=== PATIENT | female | born 1995 | race Caucasian/White ===

== ENCOUNTER 2020-06-06 19:02 | Observation (INO) | payer MEDICAID, SELFPAY ==
[2020-06-06 19:03] VITALS: BP 127/74; PULSE 115; RESP 16; TEMP 37.6; O2SAT 98; BMI 20.2
--- NOTE | 2020-06-06 19:25 | ED.RN ---
NO OLD EKGS IN MUSE
--- NOTE | 2020-06-06 19:37 | EKG12_ITS ---
Test Reason : WOUND Blood Pressure : / mmHG Vent. Rate : 114 BPM Atrial Rate : 114 BPM P-R Int : 158 ms QRS Dur : 094 ms QT Int : 314 ms P-R-T Axes : 063 097 -43 degrees QTc Int : 432 ms Sinus tachycardia Rightward axis Incomplete right bundle branch block Non-specific ST & T wave changes Abnormal ECG Confirmed by ALISTAIR READ, KAI ([id number]), editorial specialist MARIE GALEANA ([id number]) on 06/09/2020 10:53:14 A M Referred By: ANTHONY Confirmed By:JAY SAINZ MD
--- NOTE | 2020-06-06 19:40 | ED.VIS.GEN ---
History of Present Illness Chief Complaint: Wound Onset: Yesterday Narrative: Presenting noted increasing redness up the arm noted yesterday on the left side. Pain in the axillary region today. States has a wound on the left fifth knuckle noted around a week ago. Denies any injuries. Has been having chills today. No cough or urinary symptoms. No nausea or vomiting. No past medical history. No drainage from site. Increasing tenderness at the hand. No history of similar. Prior similar symptoms: No Past Medical History - Allergies and Home Meds Allergies/Adverse Reactions: Allergies No Known Allergies Allergy (Verified 06/06/20 19:05) Primary Care Physician: Yordan Marcum DO [Primary Care Provider] - Past Medical History: None Review of Systems General: Denies: Chills, Fever, Sweats Eyes: Denies: Visual changes - bilaterally, Diplopia ENT: Denies: Rhinorrhea, Sore throat Cardiovascular: Denies: Chest pain, Palpitations Respiratory: Denies: Dyspnea, Cough, Dyspnea on exertion Gastrointestinal: Denies: Abdominal pain, Nausea, Vomiting, Diarrhea, Melena, Hematochezia Genitourinary: Denies: Dysuria, Hematuria, Frequency Musculoskeletal: Denies: Back pain, Extremity Pain Skin: Reports: Wounds. Denies: Rash Neurological: Denies: Headache, Weakness, Numbness Physical Exam Vital Signs/Narrative: Vital Signs Temp Pulse Resp BP Pulse Ox 06/06/20 19:03 99.7 F H 115 H 16 127/74 H 98 Inital Vital Signs reviewed: Yes General: Well nourished, Well developed, No Acute Distress Head: Normocephalic, Atraumatic Eyes: Perrl, EOMI ENT: Moist mucous membranes, No rhinorrhea Neck: Supple, Nontender Cardiovascular: Regular rhythm, No murmurs, Tachycardia Respiratory: No distress, CTA bilaterally, Chest nontender Abdomen: Soft, Nontender, Nondistended, Normal bowel sounds Back: Nontender, Normal Inspection Extremities: No edema, - - Left upper extremity: There is a 2 cm closed comedone left dorsal proximal phalanx of the fifth digit. There is surrounding erythema distal aspect of dorsal hand, there is streaking up the arm to the axillary region, there is no palpable lymphadenopathy at the axillary region however there is tende Skin: Normal color, No rash Neurological: Alert, Oriented x3, Cranial nerves II-XII grossly intact, Normal Strength, Normal Sensation Psychological: Normal affect, Normal Mood Diagnostic/Tx/Re-eval Abnormal Lab Results 06/06/20 06/06/20 06/06/20 19:45 19:45 19:45 WBC 12.0 H RBC 4.31 Hgb 13.0 Hct 38.6 MCV 89.6 MCH 30.2 MCHC 33.7 RDW Std Deviation 38.3 RDW Coeff of Layla 11.7 Plt Count 236 MPV 10.8 Immature Gran % (Auto) 0.400 Neut % (Auto) 81.2 H Lymph % (Auto) 11.1 L Brule % (Auto) 6.9 Eos % (Auto) 0.2 Baso % (Auto) 0.2 Absolute Neuts (auto) 9.8 H Absolute Lymphs (auto) 1.33 Nucleated RBC % 0 PT 14.2 INR 1.2 APTT 31.7 Sodium 137 Potassium 3.2 L Chloride 104 Carbon Dioxide 28.0 Anion Gap 5 BUN 6 L Creatinine 0.65 Estim Creat Clear Calc 104.64 Est GFR (MDRD) Af Amer 143 Est GFR (MDRD) Non-Af 118 BUN/Creatinine Ratio 9.3 L Glucose 97 Lactic Acid Calcium 9.3 Total Bilirubin 0.70 AST 8 L ALT 20 Alkaline Phosphatase 59 Total Protein 8.0 Albumin 4.1 Globulin 3.9 Albumin/Globulin Ratio 1.1 06/06/20 19:45 WBC RBC Hgb Hct MCV MCH MCHC RDW Std Deviation RDW Coeff of Layla Plt Count MPV Immature Gran % (Auto) Neut % (Auto) Lymph % (Auto) Brule % (Auto) Eos % (Auto) Baso % (Auto) Absolute Neuts (auto) Absolute Lymphs (auto) Nucleated RBC % PT INR APTT Sodium Potassium Chloride Carbon Dioxide Anion Gap BUN Creatinine Estim Creat Clear Calc Est GFR (MDRD) Af Amer Est GFR (MDRD) Non-Af BUN/Creatinine Ratio Glucose Lactic Acid 1.0 Calcium Total Bilirubin AST ALT Alkaline Phosphatase Total Protein Albumin Globulin Albumin/Globulin Ratio - EKG Initial EKG Interpretation: Sinus Tachycardia - Sinus tachycardia rate of 114, no ST changes, T wave inversions inferior leads and V3. - Medical Decision Making Patient low-grade temp on arrival tachycardic, infection site concerning for the left hand wound region with streaking. Sepsis work-up initiated. There is no crepitus around the wound site, however x-rays were ordered. 3 view left hand x-ray reviewed by myself shows no bony process, no soft tissue gas. Patient's white count returned at 12, meeting sepsis criteria. Her lactic acid was normal. I performed I&D bedside with scant exudates with culture sent prior to starting antibiotics. She was covered with Zosyn and vancomycin. With streaking up to her axillary region, I do feel she will benefit from hospitalization to monitor. I spoke with hospitalist. Dr. Santacruz will admit for further management. Procedure note: Verbal consent incision and drainage. Normal sterile fashion. Shur-Clens for wound preparation, 1 cc 1% lidocaine used for local analgesia. Betadine prep was performed, a cruciate incision was made over the wound, scant exudates were noted, cultures collected. Hemostats used to help open loculations. Patient tolerated procedure well. - Critical Care Time Critical care time (excluding procedures): 30-74 minutes, Discussing w/Consultants, Arranging Admission or Transfer ED Disposition - Plan for ED Patient: Disposition: Acute Care Hospital [facility] Diagnosis: Sepsis, Cellulitis of left hand Referrals: Yordan Marcum DO [Primary Care Provider] -
--- NOTE | 2020-06-06 19:50 | RAD_ITS ---
STUDY: X-RAY - LEFT HAND REASON FOR EXAM: Female, 24 years old. infection 5th knuckle TECHNIQUE: 3 view(s) of the hand. COMPARISON: None. FINDINGS: Normal radiocarpal articulation. Normal distal radioulnar joint. Normal visualized carpal bones. Normal carpal articulations Normal carpometacarpal articulation of the thumb. Normal second through fifth carpometacarpal joints. Normal metacarpi. Normal metacarpophalangeal joint of the thumb. Normal interphalangeal joint of the thumb. Normal proximal and distal phalanges of the thumb. Normal metacarpophalangeal joints of the second through fifth fingers. Normal proximal and distal interphalangeal joints of the second through fifth fingers. Normal phalanges of the second through fifth fingers. Soft tissue swelling with no foreign body RAD/Hand Min 3 Views IMPRESSION: Soft tissue swelling with no fracture, osteolytic lesion, dislocation or foreign body. Electronically Signed: Lisa Cates MD at 20:53 EDT , Service support ,
[2020-06-06 19:55] LABS: Absolute Lymphocyte Count 1.33 X10^3/uL (0.83-4.51); Absolute Neutrophil Count 9.8 X10^3/uL (2.0-7.7); Basophil# 0.03 X10^3/uL; Basophil% 0.2 % (0-1); Eosinophil# 0.03 X10^3/uL; Eosinophils% 0.2 % (0-5); Hematocrit 38.6 % (37-47); Lymphocyte # 1.33 X10^3/ul (4.0); Lymphocyte % 11.1 % (19-41); Mean Corp Hgb Conc 33.7 g/dL (32-36); Mean Corpuscular Hgb 30.2 pg (27.0-32.0); Mean Corpuscular Volume 89.6 fL (81-99); Mean Platelet Vol. 10.8 fl (6.2-12.0); Monocyte# 0.83 X10^3/uL; Monocyte% 6.9 % (0-10); NRBC Flagged by Analyzer 0 % (0-5); Neutrophil # 9.75 X10^3/uL (2.7-7.7); Neutrophil % 81.2 % (47-70); Platelet Count 236 K/mm3 (150-450); RBC Distribution Width CV 11.7 % (11.6-14.6); RBC Distribution Width SD 38.3 fl (35.1-43.9); Red Blood Count 4.31 M/mm3 (4.2-5.4)
[2020-06-06] MEDS: Lidocaine 1% (20 ml mdv) 20 ML Vial INFILT (19:58)
[2020-06-06 20:00] VITALS: BP 119/85; PULSE 106; RESP 17; TEMP 36.4; O2SAT 100
[2020-06-06 20:04] LABS: International Normalized Ratio 1.2; Prothrombin Time (Protime)PT. 14.2 SECONDS (11.7-14.9)
[2020-06-06 20:05] LABS: Partial Thromboplast Time 31.7 Seconds (24.1-36.2)
[2020-06-06 20:11] VITALS: TEMP 36.4; O2SAT 99
[2020-06-06 20:15] LABS: ALB/GLOB Ratio 1.1 RATIO (0.9-2.4); AST(SGOT) 8 U/L (15-37); Alanine Aminotransfer ALT/SGPT 20 U/L (13-56); Albumin, Serum 4.1 g/dL (3.2-5.0); Alkaline Phosphatase 59 U/L (45-117); Anion Gap 5 (5-15); BUN 6 mg/dL (7-18); BUN/Creat Ratio 9.3 RATIO (10-20); Calcium,Total 9.3 mg/dL (8.5-10.1); Chloride 104 mmol/L (98-107); Creatinine, Serum 0.65 mg/dL (0.55-1.02); EST Glomerular Filtration Rate 118 mL/min (>60); Est Glom Filt Rate - Afr Amer 143 mL/min (>60); Estimated Creatinine Clearance 104.64 ml/min; Globulin 3.9 g/dL (2.2-4.2); Glucose 97 mg/dL (74-106); Potassium 3.2 mmol/L (3.5-5.1); Sodium Level 137 mmol/L (136-145)
[2020-06-06 20:39] VITALS: BP 119/85; PULSE 106; RESP 19; TEMP 36.4; O2SAT 96
--- NOTE | 2020-06-06 20:59 | PCM.HP.STD ---
Problem List (1) Abscess of finger of left hand Status: Acute (2) Cellulitis of left hand Status: Acute (3) Sepsis Status: Inactive (4) Denies previous medical history Status: Chronic History of Present Illness Date of Admission: 06/06/20 Chief Complaint: Pain and swelling of fifth digit of left hand. The patient is a 24 year old F previously healthy who presented with 5-day history of Pain and swelling of fifth digit of left hand after developing a wound on the proximal phalanx of the fifth digit of the left hand. She noticed increased warmth in the same extremity. She denies any trauma or insect bite. Her symptoms has been progressively worsening. She has noticed progressively worsening redness from the same digit into the armpits of same extremity. She placed her left hand in Epson salt and had some relief. Past Medical History Past Medical History (Chronic Problems): Chronic Problems (Last Reviewed 06/06/20 @ 22:[address] Josiah Santacruz MD) Denies previous medical history (Chronic) Medical History: Medical History (Last Updated 06/06/20 @ 21:[address] Josiah Santacruz MD) Denies previous medical history (Acute) Allergies No Known Allergies Allergy (Verified 06/06/20 19:05) Home Medications: Ambulatory Orders Medication Instructions Recorded NK 06/06/20 Surgical History: no surgical history Smoking Status: Never smoker Tobacco Use: Non-smoker - *Family History Maternal History Items: - - Denies knowledge of maternal medical history Paternal History Items: Heart Disease Review of Systems Constitutional: Reports: Chills. Denies: Fever, Weight Change HEENT: Denies: Head Aches, Sinus Congestion, Sinus Drainage Cardiovascular: Denies: Chest Pain, Palpitations Respiratory: Denies: Cough, Shortness of breath at rest, Sputum production Gastrointestinal: Denies: Abdominal Pain, Nausea, Vomiting Genitourinary: Denies: Dysuria Musculoskeletal: Reports: Hand Pain, Joint Tenderness. Denies: Joint Pain Skin: Denies: Rash, Wounds Neurological: Denies: Numbness, Tingling, Focal weakness Psychiatric: Denies: Anxiety, Depression, Homicidal Ideations, Suicidal Ideations Hematologic/ Lymphatic: Denies: Easy Bruising, Easy Bleeding VTE Information - Inpt Only VTE Present on Admission: No VTE Mechan Device Prophylaxis: None VTE Pharm Prophylaxis ordered?: No Reason prophylaxis not ordered:: Treatment Not Indicated - Low risk; encourage to ambulate Patient Problems: Active and Suspected Problems (Last Reviewed 06/06/20 @ 22:[address] Josiah Santacruz MD) Cellulitis of left hand (Acute) Abscess of finger of left hand (Acute) - Physical Exam Vitals/I&O's: Vital Signs Temp Pulse Resp BP Pulse Ox 97.6 F L 106 H 17 119/85 H 99 06/06/20 20:11 06/06/20 20:00 06/06/20 20:00 06/06/20 20:00 06/06/20 20:11 Oxygen Delivery Method Room Air Weight: 50.3 kg Body Mass Index (BMI) 20.2 Intake and Output for Last 24 Hours 06/04/20 06/05/20 06/06/20 23:59 23:59 23:59 Intake Total 50 / 50 Balance 50 / 50 General: Alert, Oriented x3, Cooperative HEENT: Atraumatic, PERRLA, EOMI, Normocephalic Neck: Supple, No JVD, Negative Carotid Bruits Lungs: Clear to auscultation, Normal air movement Cardiovascular: Regular rate, No murmurs Abdomen: Bowel Sounds Present, Soft, Non Tender Extremities: No edema, Capillary Refill Less than 3 Seconds Skin: - - Lymphangitic streaking from left hand extending to left armpit. Musculoskeletal: Tenderness - Fifth digit of left hand extending to left forearm and left arm, - - Swelling of fifth digit of left hand. Neurological: Cranial nerves II-XII grossly intact Psych/Mental Status: Normal Affect, Appropriate Laboratory Results 06/06/20 19:45: WBC 12.0 H, RBC 4.31, Hgb 13.0, Hct 38.6, MCV 89.6, MCH 30.2, MCHC 33.7, RDW Std Deviation 38.3, RDW Coeff of Layla 11.7, Plt Count 236, MPV 10.8, Immature Gran % (Auto) 0.400, Neut % (Auto) 81.2 H, Lymph % (Auto) 11.1 L, [place] % (Auto) 6.9, Eos % (Auto) 0.2, Baso % (Auto) 0.2, Absolute Neuts (auto) 9.8 H, Absolute Lymphs (auto) 1.33, Nucleated RBC % 0 06/06/20 19:45: PT 14.2, INR 1.2, APTT 31.7 06/06/20 19:45: Sodium 137, Potassium 3.2 L, Chloride 104, Carbon Dioxide 28.0, Anion Gap 5, BUN 6 L, Creatinine 0.65, Estim Creat Clear Calc 104.64, Est GFR (MDRD) Af Amer 143, Est GFR (MDRD) Non-Af 118, BUN/Creatinine Ratio 9.3 L, Glucose 97, Calcium 9.3, Total Bilirubin 0.70, AST 8 L, ALT 20, Alkaline Phosphatase 59, Total Protein 8.0, Albumin 4.1, Globulin 3.9, Albumin/Globulin Ratio 1.1 06/06/20 19:45: Lactic Acid 1.0 Current Medications Vancomycin HCl 750 mg/ Sodium (Chloride) 265 mls @ 250 mls/hr IV X1 ONE Stop: 06/06/20 21:33 Last Admin: 06/06/20 20:37 Dose: 250 mls/hr Documented by: Sodium Chloride () 250 mls @ 15 mls/hr IV .[id number] PRN PRN Reason: Saline Flush Assessment/Plan All Active Problems (Last Reviewed 06/06/20 @ 22:[address] Josiah Santacruz MD) Cellulitis of left hand (Acute) Abscess of finger of left hand (Acute) The patient is a 24 year old F previously healthy who presented with 5-day history of Pain and swelling of fifth digit of left hand after developing a wound on the proximal phalanx of the fifth digit of the left hand and with lymphangitic streaking was found to have leukocytosis and tachycardia. Abscess of fifth digit of left hand with cellulitis. Patient with tachycardia and low-grade fever of 99.7. Abscess was incised and drained at the emergency department and cultures obtained; follow. Blood cultures obtained in the emergency department; follow. Started on vancomycin and Zosyn at emergency department. Vancomycin and Zosyn continued. Review of medical department labs showed a leukocytosis with white count of 12,000. On the borderline of sepsis as white count is 12. Does not meet sepsis criteria Toradol IV as needed for pain; acetaminophen p.o. as needed for pain. Trend CBC and BMP. Hypokalemia Potassium 3.2 Replacement ordered Trend BMP DVT prophylaxis Low risk. Encourage to ambulate. Inpatient E&M: 02740 Init Hosp L3
[2020-06-06 21:47] VITALS: BMI 20.5
[2020-06-06 22:03] VITALS: BP 106/64; PULSE 106; RESP 16; TEMP 37.2; O2SAT 98
[2020-06-06] MEDS: Potassium Chloride Oral Tablet 20 MEQ 40 MEQ PO (22:15)
--- NOTE | 2020-06-06 22:36 | PCM.RX.CS ---
Consult Pharmacy has been consulted to manage selected antiobiotic: Vancomycin Type of Consult: New start Suspected Infection: Skin/Soft tissue Prior Doses of Antibiotics Received/Current Regimen: Medications Vancomycin HCl 750 mg/ Sodium (Chloride) 265 mls @ 250 mls/hr IV Q12H ORLY Discontinued Medications Vancomycin HCl 750 mg/ Sodium (Chloride) 265 mls @ 250 mls/hr IV X1 ONE Stop: 06/06/20 21:33 Last Admin: 06/06/20 21:41 Dose: Infused Labs: Sodium 137 mmol/L (136-145) 06/06/20 19:45 Potassium 3.2 mmol/L (3.5-5.1) L 06/06/20 19:45 Chloride 104 mmol/L (98-107) 06/06/20 19:45 Carbon Dioxide 28.0 mmol/L (21.0-32.0) 06/06/20 19:45 Anion Gap 5 (5-15) 06/06/20 19:45 BUN 6 mg/dL (7-18) L 06/06/20 19:45 Creatinine 0.65 mg/dL (0.55-1.02) 06/06/20 19:45 Est GFR (MDRD) Af Amer 143 mL/min (>60) 06/06/20 19:45 Est GFR (MDRD) Non-Af 118 mL/min (>60) 06/06/20 19:45 BUN/Creatinine Ratio 9.3 RATIO (10-20) L 06/06/20 19:45 Glucose 97 mg/dL (74-106) 06/06/20 19:45 Weight used for dosin.9 kg Estimated Creatinine Clearance: 105 Goal Trough: 10-15 mcg/mL Pharmacy Plan for Drug Dosing: Pharmacy Service will continue to monitor and adjust dosing as required. Follow-Up Labs: Trough Vancomycin Labs to be done on [date and time ordered]: 06/08/20 @0800
--- NOTE | 2020-06-06 22:42 | NURSING ---
Pt notified that visitors aren't allowed past 1800. Pt stated her is working on getting a ride at this time.
[2020-06-07 03:32] VITALS: BP 110/71; PULSE 93; RESP 16; TEMP 36.8; O2SAT 100
[2020-06-07] MEDS: 0.9% Saline Lock 10 ML Syringe IV ×2 (05:00→21:08)
[2020-06-07 05:57] LABS: Absolute Lymphocyte Count 1.19 X10^3/uL (0.83-4.51); Absolute Neutrophil Count 5.7 X10^3/uL (2.0-7.7); Basophil# 0.03 X10^3/uL; Basophil% 0.4 % (0-1); Eosinophil# 0.08 X10^3/uL; Hematocrit 34.7 % (37-47); Hemoglobin 11.5 g/dL (12.0-15.0); Lymphocyte # 1.19 X10^3/ul (4.0); Lymphocyte % 15.3 % (19-41); Mean Corp Hgb Conc 33.1 g/dL (32-36); Mean Corpuscular Volume 90.6 fL (81-99); Mean Platelet Vol. 11.1 fl (6.2-12.0); Monocyte# 0.72 X10^3/uL; Monocyte% 9.3 % (0-10); NRBC Flagged by Analyzer 0 % (0-5); Neutrophil # 5.73 X10^3/uL (2.7-7.7); Neutrophil % 73.7 % (47-70); Platelet Count 209 K/mm3 (150-450); RBC Distribution Width CV 11.9 % (11.6-14.6); RBC Distribution Width SD 39.4 fl (35.1-43.9); Red Blood Count 3.83 M/mm3 (4.2-5.4); White Blood Count 7.8 K/mm3 (4.4-11.0)
[2020-06-07 06:26] LABS: Anion Gap 6 (5-15); BUN 6 mg/dL (7-18); BUN/Creat Ratio 11.3 RATIO (10-20); Calcium,Total 8.7 mg/dL (8.5-10.1); Chloride 108 mmol/L (98-107); Creatinine, Serum 0.53 mg/dL (0.55-1.02); EST Glomerular Filtration Rate 148 mL/min (>60); Est Glom Filt Rate - Afr Amer 180 mL/min (>60); Estimated Creatinine Clearance 128.34 ml/min; Glucose 90 mg/dL (74-106); Potassium 3.7 mmol/L (3.5-5.1); Sodium Level 137 mmol/L (136-145)
[2020-06-07 07:35] VITALS: O2SAT 99
[2020-06-07 08:02] VITALS: BP 103/62; PULSE 85; RESP 16; TEMP 36.7; O2SAT 97
--- NOTE | 2020-06-07 08:36 | PN_ITS ---
Patient Problems: Active and Suspected Problems (Last Reviewed 06/06/20 @ 22:[address] Josiah Santacruz MD) Cellulitis of left hand (Acute) Abscess of finger of left hand (Acute) Subjective: Chief complaint: Follow-up after admission for acute left hand cellulitis/base of the left fifth digit abscess with cellulitis, with sepsis. Patient seen and examined. No acute events overnight. Erythema and swelling of the dorsum of left hand is getting better, more localized. Streaking up into the left arm is getting better as well. She has been afebrile. She complained of neck soreness. Her vital signs are stable, afebrile. - Physical Exam Vitals/I&O's: Vital Signs Temp Pulse Resp BP Pulse Ox 98.1 F 85 16 103/62 97 06/07/20 08:02 06/07/20 08:02 06/07/20 08:02 06/07/20 08:02 06/07/20 08:02 Oxygen Delivery Method Room Air Weight: 112 lb 3.445 oz Body Mass Index (BMI) 20.5 Intake and Output for Last 24 Hours 06/05/20 06/06/20 06/07/20 23:59 23:59 23:59 Intake Total 315 / 515 1400 / 1400 Balance 315 / 515 1400 / 1400 General: Alert, Oriented x3, Cooperative, No apparent distress HEENT: Atraumatic, PERRLA, EOMI, Normocephalic Oral: Moist Mucosa, No Gingival or Mucosal Lesions/ Ulcerations Neck: Supple, No JVD, Negative Carotid Bruits, Trachea Midline, Thyroid Normal Size and Texture Lungs: Clear to auscultation, Normal air movement, No rhonchi, No wheeze, No rales Cardiovascular: Regular rate, Regular Rhythm, Normal S1, Normal S2, PMI Normal Abdomen: Bowel Sounds Present, Soft, Non Tender, Non-Distended, No Hepato- splenomegaly Extremities: No clubbing, No cyanosis, No edema, - - Left hand: Swelling and erythema around the left fifth digit knuckle, dry wound, mild diffuse erythema of the dorsum of left hand, minimal streaking up to the left forearm. Skin: No rashes, No breakdown Lymphatic: No Cervical, Supraclavicular, or Inguinal Adenopathy Neurological: Cranial nerves II-XII grossly intact, Neuro grossly intact Psych/Mental Status: Normal Affect, Appropriate, Alert and oriented to time, place, person, mood and affect Laboratory Results 06/06/20 19:45: WBC 12.0 H, RBC 4.31, Hgb 13.0, Hct 38.6, MCV 89.6, MCH 30.2, M CHC 33.7, RDW Std Deviation 38.3, RDW Coeff of Layla 11.7, Plt Count 236, MPV 10.8, Immature Gran % (Auto) 0.400, Neut % (Auto) 81.2 H, Lymph % (Auto) 11.1 L, King % (Auto) 6.9, Eos % (Auto) 0.2, Baso % (Auto) 0.2, Absolute Neuts (auto) 9.8 H, Absolute Lymphs (auto) 1.33, Nucleated RBC % 0 06/06/20 19:45: PT 14.2, INR 1.2, APTT 31.7 06/06/20 19:45: Sodium 137, Potassium 3.2 L, Chloride 104, Carbon Dioxide 28.0, Anion Gap 5, BUN 6 L, Creatinine 0.65, Estim Creat Clear Calc 104.64, Est GFR (MDRD) Af Amer 143, Est GFR (MDRD) Non-Af 118, BUN/Creatinine Ratio 9.3 L, Glucose 97, Calcium 9.3, Total Bilirubin 0.70, AST 8 L, ALT 20, Alkaline Phosphatase 59, Total Protein 8.0, Albumin 4.1, Globulin 3.9, Albumin/Globulin Ratio 1.1 06/06/20 19:45: Lactic Acid 1.0 06/07/20 05:30: WBC 7.8, RBC 3.83 L, Hgb 11.5 L, Hct 34.7 L, MCV 90.6, MCH 30.0, MCHC 33.1, RDW Std Deviation 39.4, RDW Coeff of Layla 11.9, Plt Count 209, MPV 11.1, Immature Gran % (Auto) 0.300, Neut % (Auto) 73.7 H, Lymph % (Auto) 15.3 L, King % (Auto) 9.3, Eos % (Auto) 1.0, Baso % (Auto) 0.4, Absolute Neuts (auto) 5.7, Absolute Lymphs (auto) 1.19, Nucleated RBC % 0 06/07/20 05:30: Sodium 137, Potassium 3.7, Chloride 108 H, Carbon Dioxide 23.0, Anion Gap 6, BUN 6 L, Creatinine 0.53 L, Estim Creat Clear Calc 128.34, Est GFR (MDRD) Af Amer 180, Est GFR (MDRD) Non-Af 148, BUN/Creatinine Ratio 11.3, Glucose 90, Calcium 8.7 Current Medications Acetaminophen (Acetaminophen 325 Mg Tablet) 650 mg PO Q6H PRN PRN PRN Reason: Pain Score 1-10/Temp > 100.7 F Bacitracin (Bacitracin 15 Gm Tube) 1 applic TOPICAL TID ORLY; Protocol Sodium Chloride () 250 mls @ 15 mls/hr IV .[id number] PRN PRN Reason: Saline Flush Sodium Chloride () 250 mls @ 15 mls/hr IV .[id number] PRN PRN Reason: Additional IVPB Infusion Ampicillin Sodium/Sulbactam (Sodium 3 gm/ Sodium Chloride) 112 mls @ 150 mls/hr IV Q8 ORLY Ketorolac Tromethamine (Ketorolac 15 Mg/Ml Vial) 15 mg IV Q8H PRN PRN PRN Reason: pain 4-10 Stop: 06/11/20 21:48 Ondansetron HCl (Ondansetron 4 Mg/2 Ml Vial) 4 mg IV Q8H PRN PRN PRN Reason: NAUSEA/VOMITING Senna/Docusate Sodium (Senna/Docusate Sodium 1 Tablet) 2 tablet PO BID PRN PRN PRN Reason: Constipation Sodium Chloride (0.9% Saline Lock 10 Ml Syringe) 10 - 40 ml IV UD PRN PRN Reason: SALINE FLUSH Last Admin: 06/07/20 05:00 Dose: 10 ml Documented by: Medical Necessity - Tobacco Use Smoking Status: Never smoker Tobacco Use: Non-smoker Assessment/Plan All Active Problems (Last Reviewed 06/06/20 @ 22:[address] Josiah Santacruz MD) Cellulitis of left hand (Acute) Abscess of finger of left hand (Acute) This is a 24 years old female patient presented to the emergency room because of increasing redness and swelling as well as mild pain on the dorsal aspect of the left hand mainly at the base of the left fifth digit, found to have left fifth digit abscess with surrounding cellulitis/left hand cellulitis, status post incision and drainage at the bedside and also found to have sepsis. #1 acute left dorsal hand cellulitis/left fifth digit knuckle cellulitis with abscess/sepsis: Status post incision and drainage at the bedside. She is on IV vancomycin and Zosyn. She has been afebrile, WBC is back to normal. Erythema and streaking of the left upper extremity is getting better. Vital signs are stable, no more tachycardia. Blood and wound cultures are pending. Plan: Discontinue IV vancomycin and Zosyn, start IV Unasyn, start topical bacitracin, anticipate discharge home tomorrow if improving. #2 hypokalemia: Replaced and corrected. #3 DVT prophylaxis: Low risk patient, no prophylaxis indicated. Ambulate. This note was generated with [employer] dictation software. It may contain incorrect words, spelling, and punctuation that were not noted in checking the note before signing. Inpatient E&M: 50523 Subs Hosp L2
[2020-06-07 13:47] VITALS: BP 101/64; PULSE 85; RESP 16; TEMP 36.6; O2SAT 97
[2020-06-07] MEDS: BACITRACIN 15 GM Tube 1 APPLIC TOPICAL ×2 (13:49→21:08)
--- NOTE | 2020-06-07 16:16 | CM.UR ---
RN CM Assessment Introduced role of RN CM to patient.? Patient is alert, oriented and able?to participate in RN CM Assessment. ?Care providers, pharmacy, and demographics verified. 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 PCP: Dr. Marcum Specialists: None Preferred Pharmacy: [facility] Insurance: [employer] Rx Benefit:? yes through [employer] ?LNOK: sonja LW/HPOA: none, declines additional information at this time. Living Arrangements:? [place] home with and 3 children. ADL?s: independent Transportation: [employer] DME: None HHC: None SNF: None Goal: home, denies any needs. DC PLAN: Home, no needs anticipated. Alerted patient that case management will remain available should any needs arise. Verb understanding. Stephani Lou RN, CCM.
[2020-06-07 19:19] VITALS: BP 105/63; PULSE 81; RESP 14; TEMP 36.4; O2SAT 100
[2020-06-08 01:45] VITALS: BP 120/75; PULSE 71; RESP 16; TEMP 36.7; O2SAT 98
[2020-06-08] MEDS: BACITRACIN 15 GM Tube 1 APPLIC TOPICAL (05:28)
[2020-06-08 07:36] VITALS: BP 107/58; PULSE 69; RESP 16; TEMP 36.8; O2SAT 96
--- NOTE | 2020-06-08 08:45 | DCINST_ITS ---
- Discharge Diagnoses Current Active Problems: Current Active and Chronic Problems (Last Reviewed 06/06/20 @ 22:[address] Josiah Santacruz MD) Cellulitis of left hand (Acute) Abscess of finger of left hand (Acute) Denies previous medical history (Chronic) You will use the following diet at home:: Regular Your food should be the consistency of: Regular Discharge Activity: Return to Normal Activity Weight Bearing Status: Full weight bearing Call your doctor if you observe: Fever of 101 or Higher, Shortness of breath, Dizziness, Fainting spells, Chest pain, Increased palpitations (irregular heartbeat), Uncontrolled pain Allergies/Adverse Reactions: Allergies No Known Allergies Allergy (Verified 06/06/20 19:05) Medications to take at Discharge Amox/Clavulanate Tablet [Augmentin Tablet] 875 mg PO Q12H #14 tab 06/08/20 Bacitracin Ointment 1 applic TOPICAL BID #1 tube 06/08/20 The following prescriptions were given: Amox/Clavulanate Tablet [Augmentin Tablet] 875 mg PO Q12H #14 tab Transmission Status: Pending to [facility] Bacitracin Ointment 1 applic TOPICAL BID #1 tube Transmission Status: Pending to [facility] Primary Care Physician: Yordan Marcum DO [Primary Care Provider] - Please follow up with your Primary Care Physician in: 1 week. Test Results: Test results from this visit will be discussed in further detail at your follow- up appointment, if applicable.
--- NOTE | 2020-06-08 10:28 | DS.PCM_ITS ---
Discharge Date and Diagnosis - Problem List Patient Problems: Active and Suspected Problems (Last Reviewed 06/06/20 @ 22:[address] Josiah Santacruz MD) Cellulitis of left hand (Acute) Abscess of finger of left hand (Acute) Date of Admission: 06/06/20 Date of Discharge: 06/08/20 - Primary Discharge Diagnosis Acute Problems: Active Problems (Last Reviewed 06/06/20 @ 22:[address] Josiah Santacruz MD) MSSA acute left dorsal hand cellulitis/left fifth digit cellulitis with abscess/sepsis. - Secondary Discharge Diagnosis Chronic Problems: Chronic Problems (Last Reviewed 06/06/20 @ 22:[address] Josiah Santacruz MD) Denies previous medical history (Chronic) Hospital Course and Treatment Imaging Results: Clinical Impression(s) from Imaging Studies Hand X-Ray 06/06/20 19:50 IMPRESSION: Soft tissue swelling with no fracture, osteolytic lesion, dislocation or foreign body. Electronically Signed: Lisa Cates MD at 20:53 EDT , Service support , Operations: None Procedures: - - Bedside incision and drainage of left fifth digit abscess. Summary of Care Provided: Patient seen and examined on the day of discharge and appeared to be stable for discharge home. Erythema and swelling of the dorsum of the left hand and left fifth digit significantly improved, no more streaking up to the left forearm. No fever or chills. Patient is able to move her left little finger. Her vital signs are stable. This is a 24 years old female patient presented to the ED because of increasing redness and swelling as well as mild pain of the dorsal aspect of the left hand mainly at the base of the left little finger. She was found to have acute cellulitis of the left hand/left fifth digit with abscess and also found to have sepsis. Incision and drainage was performed by the ED physician at the bedside. Patient was admitted to [facility] floor and started on IV vancomycin and Zosyn. Next day, IV antibiotics was switched to IV Unasyn and she was started on topical bacitracin. Her routine blood work revealed leukocytosis and mild hypokalemia. Potassium was replaced and corrected. With IV antibiotics, leukocytosis resolved and patient remained afebrile. Blood culture was negative up to the time of discharge. Wound culture revealed MSSA. With IV antibiotics, swelling and erythema of the left hand as well as streaking of left forearm significantly improved. Patient discharged home in a stable medical condition, discharged on Augmentin twice daily for 6 days, bacitracin ointment twice daily for 3 days, recommended follow-up with PCP in 1 week. Patient Problems: Active and Suspected Problems (Last Reviewed 06/06/20 @ 22:[address] Josiah Santacruz MD) Cellulitis of left hand (Acute) Abscess of finger of left hand (Acute) - Physical Exam Vitals/I&O's: Vital Signs Temp Pulse Resp BP Pulse Ox 98.3 F 69 16 107/58 L 96 06/08/20 07:36 06/08/20 07:36 06/08/20 07:36 06/08/20 07:36 06/08/20 07:36 Oxygen Delivery Method Room Air Weight: 112 lb 3.445 oz Body Mass Index (BMI) 20.5 Intake and Output for Last 24 Hours 06/06/20 06/07/20 06/08/20 23:59 23:59 23:59 Intake Total 315 / 515 3174 / 3174 112 / 112 Balance 315 / 515 3174 / 3174 112 / 112 General: Alert, Oriented x3, Cooperative, No apparent distress HEENT: Atraumatic, PERRLA, EOMI, Normocephalic Oral: Moist Mucosa, No Gingival or Mucosal Lesions/ Ulcerations Neck: Supple, No JVD, Negative Carotid Bruits, Trachea Midline, Thyroid Normal Size and Texture Lungs: Clear to auscultation, Normal air movement, No rhonchi, No wheeze, No rales Cardiovascular: Regular rate, Regular Rhythm, Normal S1, Normal S2, PMI Normal Abdomen: Bowel Sounds Present, Soft, Non Tender, Non-Distended, No Hepato- splenomegaly Extremities: No clubbing, No cyanosis, No edema, - - Left hand: Minimal erythema on the base of the left little finger, dry wound. No more streaking on the left forearm. Skin: No rashes, Ulcer/ Wound Lymphatic: No Cervical, Supraclavicular, or Inguinal Adenopathy Neurological: Cranial nerves II-XII grossly intact, Neuro grossly intact Psych/Mental Status: Normal Affect, Appropriate Microbiology Past 72 Hours 06/06/20 20:05 Abs - Left Hand Gram Stain - Final 06/06/20 20:05 Abs - Left Hand Wound Culture - Final Staphylococcus aureus Current Medications Acetaminophen (Acetaminophen 325 Mg Tablet) 650 mg PO Q6H PRN PRN PRN Reason: Pain Score 1-10/Temp > 100.7 F Bacitracin (Bacitracin 15 Gm Tube) 1 applic TOPICAL TID [facility]; Protocol Last Admin: 06/08/20 05:28 Dose: 1 applic Documented by: Sodium Chloride () 250 mls @ 15 mls/hr IV .[id number] PRN PRN Reason: Saline Flush Sodium Chloride () 250 mls @ 15 mls/hr IV .[id number] PRN PRN Reason: Additional IVPB Infusion Ampicillin Sodium/Sulbactam (Sodium 3 gm/ Sodium Chloride) 112 mls @ 150 mls/hr IV Q8 ORLY Last Infusion: 06/08/20 06:12 Dose: Infused Documented by: Ketorolac Tromethamine (Ketorolac 15 Mg/Ml Vial) 15 mg IV Q8H PRN PRN PRN Reason: pain 4-10 Stop: 06/11/20 21:48 Ondansetron HCl (Ondansetron 4 Mg/2 Ml Vial) 4 mg IV Q8H PRN PRN PRN Reason: NAUSEA/VOMITING Senna/Docusate Sodium (Senna/Docusate Sodium 1 Tablet) 2 tablet PO BID PRN PRN PRN Reason: Constipation Sodium Chloride (0.9% Saline Lock 10 Ml Syringe) 10 - 40 ml IV UD PRN PRN Reason: SALINE FLUSH Last Admin: 06/07/20 21:08 Dose: 10 ml Documented by: Discharge Activity: Return to Normal Activity Weight Bearing Status: Full weight bearing Call your doctor if you observe: Fever of 101 or Higher, Shortness of breath, Dizziness, Fainting spells, Chest pain, Increased palpitations (irregular heartbeat), Uncontrolled pain Home Medications: Medications to take at Discharge Amox/Clavulanate Tablet [Augmentin Tablet] 875 mg PO Q12H #14 tab 06/08/20 Bacitracin Ointment 1 applic TOPICAL BID #1 tube 06/08/20 Following Prescriptions Were Given to Patient: Amox/Clavulanate Tablet [Augmentin Tablet] 875 mg PO Q12H #14 tab Transmission Status: Received by GEORGE MENA RD Bacitracin Ointment 1 applic TOPICAL BID #1 tube Transmission Status: Received by GEORGE MENA RD Primary Care Physician: Yordan Marcum DO [Primary Care Provider] - Please follow up with your Primary Care Physician in: 1 week. Disposition: Home Minutes spent on discharge:: 26 Patient Condition:: Stable Medical Necessity - Tobacco Use Smoking Status: Never smoker Tobacco Use: Non-smoker Meaningful Use Info Meaningful Use Diagnoses (Choose all that apply): None applicable Inpatient E&M: 01788 Disch Hosp
== END 2020-06-08 10:35 | disposition home or self-care (01) | DRG 720 ==
LOC: ED 20:40 → MS3 06-07 07:03
PROVIDERS: Admitting Provider Hospitalist; Emergency Provider Emergency Medicine; PCP Family Medicine; Visit Provider Hospitalist
DX: A41.9 Sepsis, unspecified organism (principal); L03.114 Cellulitis of left upper limb; L03.012 Cellulitis of left finger; L02.512 Cutaneous abscess of left hand; B95.61 Methicillin susceptible Staphylococcus aureus infection as the cause of diseases classified elsewhere; E87.6 Hypokalemia; M79.629 Pain in unspecified upper arm; M54.2 Cervicalgia
CPT/HCPCS: 10060; 73130; 80048; 80053; 83605; 85025; 85610; 85730; 87040; 87070; 87075; 87077; 87186; 87205; 93005; 96365; 96366; 96367; 96376; 97802; 99218; 99285; J7050; A4216; G0378; J0295

== ENCOUNTER 2021-04-04 19:56 | Emergency (ER) | payer MEDICAID, SELFPAY ==
[2021-04-04 19:56] VITALS: BP 109/76; PULSE 90; RESP 16; TEMP 37; O2SAT 98; BMI 18.3
--- NOTE | 2021-04-04 20:14 | EX.ED.DYSGE1 ---
HPI History of Present Illness Chief Complaint: Other, Pain/Inj Informant: patient Onset/Context/Timing Onset: Days Context: Gradual Onset Timing: Continuous Quality: Aching, pulling Location: Neck and upper thoracic spine and paraspinal muscles Worsened by: Nothing Relieved by: Nothing Narrative Narrative: Patient presents with neck pain, back pain, and headache that has been gradually getting worse over the past few days. Patient states she is 3 weeks . Patient states she did not have an epidural or spinal anesthesia for her delivery. Patient admits to some subjective chills but denies any fevers. Patient describes her pain as aching and pulling. Patient states the pain is over the neck and upper thoracic area. Patient states nothing makes it worse and nothing makes it better. PFSH PFS Medical History Denies previous medical history no medical history Home Medications amoxicillin-pot clavulanate 875 mg PO Q12H #14 tab 06/08/20 [Rx Last Taken Unknown] bacitracin zinc 1 applic TOPICAL BID #1 tube 06/08/20 [Rx Last Taken Unknown] Allergy/AdvReac Type Severity Reaction Status Date / Time No Known Allergies Allergy Verified 04/04/21 19:59 Surgical History no surgical history no surgical history Social History Smoking Status: Never smoker ROS ROS ED Constitutional Constitutional ED: Reports chills and subjective; Denies fever(s) Eyes Eyes: Denies blurry vision or change in vision ENT ENT ED: Denies rhinorrhea or sore throat Cardiovascular Cardiovascular: Denies chest pain or palpitations Respiratory/Chest Respiratory/Chest: Denies cough or dyspnea Gastrointestinal Gastrointestinal: Denies nausea or vomiting Genitourinary Genitourinary ED: Denies dysuria or hematuria Musculoskeletal Musculoskeletal: Reports back pain and neck pain Integumentary Denies abscess or rash Neurologic Neurologic: Reports headache(s); Denies weakness Allergic/Immunologic Allergic/Immunologic ED: Denies mouth swelling or urticaria EXAM Physical Exam Const Vital Signs: 04/04/21 19:56 04/04/21 20:04 Temperature 98.6 F Temperature Source Temporal Pulse Rate 90 Respiratory Rate 16 Respiratory Effort Normal Non-Labored Respiratory Pattern Normal Blood Pressure 109/76 Blood Pressure Mean 87 Pulse Ox 98 Oxygen Delivery Method Room Air Positive well nourished and well developed General Appearance ED: well developed HEENT Reports moist mucous membranes Neck supple and no JVD General: Negative for meningeal signs Resp normal respiratory effort and clear to auscultation bilaterally Cardio regular rate, regular rhythm and no murmurs GI normal to inspection, nondistended, normoactive bowel sounds and non-tender Palpation: soft Extremity normal to inspection General Extremety ED: Negative for edema or tenderness General Extremity: Negative for edema Neuro oriented x3, CN's II-XII intact bilaterally and no sensory deficits noted Sensorium / Orientation: alert Motor Exam: strength 5/5 throughout Psych mental status grossly normal Skin no rashes or lesions noted MDM MDM MDM Narrative Medical decision making narrative: Patient was given IV fluids. CBC shows white blood cell count of 3.1. Comprehensive metabolic profile was within normal limits. Urinalysis does not show any evidence of urinary tract infection. COVID-19 rapid antigen was obtained and was positive. Patient was advised of her findings. Patient was instructed to take Tylenol and ibuprofen as needed for pain or fevers. Patient was instructed on social distancing. Patient was instructed to wear a mask. Patient does not meet criteria for monoclonal antibody therapy. Patient was instructed to follow-up with her primary care physician in 5 to 7 days. Patient understood and was agreeable with the plan. All questions were answered. Lab Data Attestation: I reviewed the patient's lab results. Labs: Laboratory Results - last 24 hr 04/04/21 04/04/21 04/04/21 20:30 20:30 20:39 WBC 3.1 L RBC 4.08 L Hgb 12.7 Hct 38.1 MCV 93.4 MCH 31.1 MCHC 33.3 RDW Std Deviation 40.5 RDW Coeff of Layla 11.7 Plt Count 225 MPV 10.8 Immature Gran % (Auto) 0.300 Neut % (Auto) 39.6 L Lymph % (Auto) 41.7 H [place] % (Auto) 17.5 H Eos % (Auto) 0.3 Baso % (Auto) 0.6 Absolute Neuts (auto) 1.2 L Absolute Lymphs (auto) 1.31 Nucleated RBC % 0 Sodium 141 Potassium 3.5 Chloride 109 H Carbon Dioxide 26.0 Anion Gap 6 BUN 8 Creatinine 0.70 Estim Creat Clear Calc 95.93 Est GFR (MDRD) Af Amer 129 Est GFR (MDRD) Non-Af 107 BUN/Creatinine Ratio 11.4 Glucose 91 Calcium 8.9 Total Bilirubin 0.30 AST 17 ALT 32 Alkaline Phosphatase 76 Total Protein 7.3 Albumin 3.7 Globulin 3.6 Albumin/Globulin Ratio 1.0 Urine Color Yellow Urine Clarity Clear Urine pH 7.0 Ur Specific [place] 1.010 Urine Protein Negative Urine Glucose (UA) Normal Urine Ketones Negative Urine Occult Blood 10 H Urine Nitrite Negative Urine Bilirubin Negative Urine Urobilinogen Normal Ur Leukocyte Esterase 25 H Urine RBC 0-5 SEEN Urine WBC 0-5 SEEN Ur Squamous Epith Cells 0 SEEN Amorphous Sediment 1+ Urine Bacteria 0 SEEN Urine Mucus 0 SEEN Discharge Plan Triage Chief Complaint: Other, Pain/Inj ED Provider: Benji Roque Dx/Rx/DC Orders Clinical Impression: COVID-19 Instructions: Coronavirus Disease 2019 (COVID-19): Overview Prescriptions: No Action amoxicillin-pot clavulanate 875 MG tablet 875 mg PO Q12H Qty: 14 RF: 0 bacitracin zinc 1 APPLIC ointment 1 applic TOPICAL BID Qty: 1 RF: 0 Primary Care Provider: Yordan Marcum Referrals: Yordan Marcum DO [Primary Care Provider] - 5-7 Days Disposition Disposition: Home, Self Care
[2021-04-04] MEDS: 0.9% Normal Saline 1,000 ML 1000 ML IV (20:28)
[2021-04-04 20:34] LABS: Absolute Lymphocyte Count 1.31 X10^3/uL (0.83-4.51); Absolute Neutrophil Count 1.2 X10^3/uL (2.0-7.7); Basophil# 0.02 X10^3/uL; Basophil% 0.6 % (0-1); Eosinophil# 0.01 X10^3/uL; Eosinophils% 0.3 % (0-5); Hematocrit 38.1 % (37-47); Hemoglobin 12.7 g/dL (12.0-15.0); Lymphocyte # 1.31 X10^3/ul (0.83-4.51); Lymphocyte % 41.7 % (19-41); Mean Corp Hgb Conc 33.3 g/dL (32-36); Mean Corpuscular Hgb 31.1 pg (27.0-32.0); Mean Corpuscular Volume 93.4 fL (81-99); Mean Platelet Vol. 10.8 fl (6.2-12.0); Monocyte# 0.55 X10^3/uL; Monocyte% 17.5 % (0-10); NRBC Flagged by Analyzer 0 % (0-5); Neutrophil # 1.24 X10^3/uL (2.7-7.7); Neutrophil % 39.6 % (47-70); Platelet Count 225 K/mm3 (150-450); RBC Distribution Width CV 11.7 % (11.6-14.6); RBC Distribution Width SD 40.5 fl (35.1-43.9); Red Blood Count 4.08 M/mm3 (4.2-5.4); White Blood Count 3.1 K/mm3 (4.4-11.0)
[2021-04-04 20:47] LABS: Bacteria 0 SEEN /hpf (None Seen); Mucous, Urine 0 SEEN /hpf (<or=2+); Squamous Epithelial Cells - UA 0 SEEN /hpf (5-10)
[2021-04-04 20:50] LABS: AST(SGOT) 17 U/L (15-37); Alanine Aminotransfer ALT/SGPT 32 U/L (13-56); Albumin, Serum 3.7 g/dL (3.2-5.0); Alkaline Phosphatase 76 U/L (45-117); Anion Gap 6 (5-15); BUN 8 mg/dL (7-18); BUN/Creat Ratio 11.4 RATIO (10-20); Calcium,Total 8.9 mg/dL (8.5-10.1); Chloride 109 mmol/L (98-107); EST Glomerular Filtration Rate 107 mL/min (>60); Est Glom Filt Rate - Afr Amer 129 mL/min (>60); Estimated Creatinine Clearance 95.93 ml/min; Globulin 3.6 g/dL (2.2-4.2); Glucose 91 mg/dL (74-106); Potassium 3.5 mmol/L (3.5-5.1); Protein, Total 7.3 g/dL (6.4-8.2); Sodium Level 141 mmol/L (136-145)
[2021-04-04 21:04] LABS: Color, Urine Yellow (Yellow); Glucose, Dipstick Normal (Normal); Ketone-Dipstick Negative (Negative); Leukocyte Esterase-Dipstick 25 /ul (Negative); Nitrite-Dipstick Negative (Negative); Occult Blood-Urine 10 /ul (Negative); Protein-Dipstick Negative (Negative); Urine Bilirubin Dipstick Negative (Negative); Urine Clarity Clear (Clear); Urine Urobilinogen Normal (Normal)
[2021-04-04 21:41] LABS: Amorphous Sediment 1+; Red Blood Cells-Urine 0-5 SEEN /hpf (0-5); White Blood Cells 0-5 SEEN /hpf (0-5)
== END 2021-04-04 22:09 | disposition home or self-care (01) ==
PROVIDERS: Emergency Provider Emergency Medicine; PCP Family Medicine; Visit Provider Emergency Medicine
DX: U07.1 COVID-19 (principal)
CPT/HCPCS: 80053; 81001; 85025; 87426; 96360; 99283; J7030; A4216